=== PATIENT | female | born 1990 | race American Indian/Alaskan Native ===

== ENCOUNTER 2017-01-21 10:43 | Emergency (ER) | payer MEDICAID ==
[2017-01-21 10:43] VITALS: BMI 27.4
[2017-01-21 10:50] VITALS: TEMP 98.3; O2SAT 100
--- NOTE | 2017-01-21 11:36 | ED PDOC ---
Arrival/HPI - General Chief Complaint: Abdominal Pain Time Seen by Provider: 01/21/17 11:23 Historian: Patient - History of Present Illness Narrative History of Present Illness (Text): 01/21/17 11:33 This 26 yo female presents to this ED c/o left abdominal pain x 2 days. Patient stated she had a liposuction performed x 16 days ago. Patient stated she was doing well, till yesterday. Denies fever, sob, cp, constipation, urinary retention, n/v, rectal bleeding, dizziness, melena, hematochezia, or abnormal gait. Patient appears well on her stretcher, in no acute distress, texting with her cellphone. Time/Duration: Other (2 days) Quality: Aching Context: Home Past Medical History - Provider Review Nursing Documentation Reviewed: Yes - Infectious Disease Hx of Infectious Diseases: None - Psychiatric Hx Substance Use: No - Surgical History Hx Section: Yes (x2) Other/Comment: 3 abortions with d&C. liposucton. - Anesthesia Hx Anesthesia: Yes Hx Anesthesia Reactions: No Family/Social History - Physician Review Nursing Documentation Reviewed: Yes Family/Social History: No Known Family HX Smoking Status: Never Smoked Hx Alcohol Use: No Hx Substance Use: No Allergies/Home Meds Allergies/Adverse Reactions: Allergies No Known Allergies Allergy (Verified 01/21/17 10:49) Review of Systems - Review of Systems Constitutional: Normal. absent: Fatigue, Weight Change, Fevers Eyes: Normal ENT: Normal Respiratory: Normal. absent: SOB, Cough, Sputum, Wheezing Cardiovascular: Normal Gastrointestinal: Abdominal Pain. absent: Constipation, Diarrhea, Nausea, Vomiting Genitourinary Female: Normal. absent: Dysuria, Frequency, Hematuria Musculoskeletal: Normal Skin: Normal. absent: Rash Neurological: Normal Endocrine: Normal Hemo/Lymphatic: Normal Psychiatric: Normal Physical Exam Vital Signs Temp Pulse Resp BP Pulse Ox 01/21/17 15:15 70 16 115/62 100 01/21/17 14:15 69 18 111/68 100 01/21/17 12:49 75 18 109/65 100 01/21/17 11:38 78 18 107/61 100 01/21/17 10:49 98.3 F 81 19 105/69 100 Temperature: Afebrile Blood Pressure: Normal Pulse: Regular Respiratory Rate: Normal Appearance: Positive for: Well-Appearing, Non-Toxic, Comfortable Pain Distress: None Mental Status: Positive for: Alert and Oriented X 3 - Systems Exam Head: Present: Atraumatic, Normocephalic Pupils: Present: PERRL Extroacular Muscles: Present: EOMI Conjunctiva: Present: Normal Mouth: Present: Moist Mucous Membranes Neck: Present: Normal Range of Motion Respiratory/Chest: Present: Clear to Auscultation, Good Air Exchange. No: Respiratory Distress, Accessory Muscle Use Cardiovascular: Present: Regular Rate and Rhythm, Normal S1, S2. No: Murmurs Abdomen: Present: Tenderness (mild LUQ and epigastric tenderness.), Normal Bowel Sounds. No: Distention, Peritoneal Signs Back: Present: Normal Inspection. No: CVA Tenderness Upper Extremity: Present: Normal Inspection, Normal ROM, NORMAL PULSES, Neurovascularly Intact, Capillary Refill < 2s. No: Cyanosis, Edema Lower Extremity: Present: Normal Inspection, NORMAL PULSES, Normal ROM, Neurovascularly Intact, Capillary Refill < 2 s. No: Edema, CALF TENDERNESS Neurological: Present: GCS=15, CN II-XII Intact, Speech Normal, Motor Func Grossly Intact, Normal Sensory Function, Normal Cerebellar Funct, Gait Normal, Memory Normal Skin: Present: Warm, Dry, Normal Color. No: Rashes Psychiatric: Present: Alert, Oriented x 3, Normal Insight, Normal Concentration Medical Decision Making ED Course and Treatment: 01/21/17 15:05 Re-evaluation. Patient feels better. Discussed results and plan with patient who expresses understanding. All questions answered and there is agreement with the plan to discharge home with instructions. Patient stable for discharge. Return if symptoms persist or worsen. Re-evaluation Time: 15:06 Reassessment Condition: Re-examined, Improved - Lab Interpretations Microbiology Results: Microbiology Results 01/21/17 12:01 Urine Urine Culture - Final No Growth (<1,000 CFU/ML) Lab Results: 01/21/17 12:05 01/21/17 12:01 Lab Results 01/21/17 12:05: WBC 5.1, RBC 4.09, Hgb 12.5, Hct 37.3, MCV 91.2, MCH 30.6, MCHC 33.5, RDW 12.7, Plt Count 272, MPV 9.4, Gran % 59.5, Lymph % (Auto) 32.8, Sampson % (Auto) 5.3, Eos % (Auto) 2.0, Baso % (Auto) 0.4, Gran # 3.03, Lymph # 1.7, Sampson # 0.3, Eos # 0.1, Baso # 0.02 01/21/17 12:01: Sodium 139, Potassium 3.5 L, Chloride 102, Carbon Dioxide 30, Anion Gap 11, BUN 17, Creatinine 0.7, Est GFR ( Amer) > 60, Est GFR (Non- Af Amer) > 60, Random Glucose 99, Calcium 9.3, Total Bilirubin 0.6, AST 21, ALT 23, Alkaline Phosphatase 43, Total Protein 7.5, Albumin 4.2, Globulin 3.4, Albumin/Globulin Ratio 1.2, Lipase 45 01/21/17 12:01: Urine Color Light red, Urine Appearance Sl cloudy, Urine pH 6.0 , Ur Specific [place] 1.015, Urine Protein Trace H, Urine Glucose (UA) Negative , Urine Ketones Negative, Urine Blood Large H, Urine Nitrate Negative, Urine Bilirubin Negative, Urine Urobilinogen 0.2, Ur Leukocyte Esterase Negative, Urine RBC Tntc, Urine WBC 0 - 2, Ur Epithelial Cells 0 - 2, Urine Bacteria Rare , Urine HCG, Qual Negative 01/21/17 12:01: PT 10.8, INR 1.00, APTT 30.1 01/21/17 12:00: Total Creatine Kinase 112 - RAD Interpretation Narrative RAD Interpretations (Text): 01/21/17 14:13 Accession No. : [id number] Patient Name / ID : FRANCOIS CASTELLANOS / [id number] Exam Date : 01/21/2017 13:02:53 ( Approved ) Study Comment : Sex / Age : F / 26Y Creator : Frederick Jin MD Dictator : Frederick Jin MD Light Industrial Supervisor : Legal Aide : Frederick Jin MD Approver2 : Report Date : 01/21/2017 14:07:26 My Comment : PROCEDURE: CT Abdomen and Pelvis with contrast HISTORY: LUQ pain, epigastric pain COMPARISON: None. TECHNIQUE: Contrast dose: 100 mL Omnipaque 350 Radiation dose: Total exam DLP = 554.89 mGy-cm. This CT exam was performed using one or more of the following dose reduction techniques: Automated exposure control, adjustment of the mA and/or kV according to patient size, and/or use of iterative reconstruction technique. FINDINGS: LOWER THORAX: Unremarkable. LIVER: Mild hepatomegaly. The liver measures 18.3 cm craniocaudal dimension. No mass. No biliary dilatation. Smooth contour. GALLBLADDER AND BILE DUCTS: Unremarkable. PANCREAS: Unremarkable. No gross lesion or ductal dilatation. SPLEEN: Unremarkable. ADRENALS: Unremarkable. No mass. KIDNEYS AND URETERS: Unremarkable. No hydronephrosis. No solid mass. VASCULATURE: Unremarkable. No aortic aneurysm. BOWEL: Evaluation of the bowel is limited by the absence of oral contrast administration. Nevertheless, there is suspected circumferential mural thickening of the distal half of the transverse colon as well as the proximal aspect of the descending colon, consistent with nonspecific colitis. There are no other abnormal bowel loops identified. There is no bowel obstruction. APPENDIX: Normal appendix. PERITONEUM: Trace fluid in cul-de-sac. LYMPH NODES: Unremarkable. No enlarged lymph nodes. BLADDER: Unremarkable. REPRODUCTIVE: Normal uterus. Unremarkable ovaries. BONES: No fracture. Minimal thoracolumbar dextroscoliosis. OTHER FINDINGS: In the anterior abdominal wall, there are 2 fluid collections identified. Supraumbilical E, there is a midline elongated collection within the subcutaneous fat, measuring 10.1 cm transversely. It measures 11 mm anterior to posterior. It measures up to 4.8 cm craniocaudal but tapers away from the midline. 2nd infraumbilical anterior fluid collection is identified within the subcutaneous fat, it is not known if more inferior collection is within a scar from prior . There is no inflammatory change in the surrounding subcutaneous fat to suggest abscess. Nevertheless, clinical correlation is advised to exclude the possibility of an infected collection. IMPRESSION: Two fluid collections within the anterior midline subcutaneous fat, 1 supraumbilical and 1 smaller infraumbilical collection. The infraumbilical collection may be located within a former scar. Mild hepatomegaly. Possible nonspecific colitis of the distal transverse and proximal ascending colon although evaluation is limited by the absence of oral contrast. No additional abnormality. Radiology Orders: 01/21/17 11:37 CHEST PORTABLE [RAD] Stat 01/21/17 11:39 ABD & PELVIS IV CONTRAST ONLY [CT] Stat - Medication Orders Current Medication Orders: Discontinued Medications Famotidine (Pepcid) 20 mg IVP STAT STA Stop: 01/21/17 11:38 Last Admin: 01/21/17 12:09 Dose: 20 mg Iohexol (Omnipaque 350 100 Ml) Confirm Administered Dose 350 mg .ROUTE .STK-MED ONE Stop: 01/21/17 13:06 Ketorolac Tromethamine (Toradol) 15 mg IVP STAT STA Stop: 01/21/17 14:51 Last Admin: 01/21/17 15:03 Dose: 15 mg Disposition/Present on Arrival - Present on Arrival Any Indicators Present on Arrival: No History of DVT/PE: No History of Uncontrolled Diabetes: No Urinary Catheter: No History of Decub. Ulcer: No History Surgical Site Infection Following: None - Disposition Have Diagnosis and Disposition been Completed?: Yes Diagnosis: Abdominal pain, Colitis Disposition: HOME/ ROUTINE Disposition Time: 15:06 Patient Plan: Discharge Condition: GOOD Discharge Instructions (ExitCare): Abdominal Pain (ED), Colitis (ED) Additional Instructions: Call private general surgeon doctor for follow up visit in 1-2 days. Return to emergency if symptoms worsen. Prescriptions: Ciprofloxacin HCl [Cipro] 500 mg PO BID #14 tab Famotidine [Pepcid] 40 mg PO DAILY #10 tablet Metronidazole [Flagyl] 500 mg PO TID #21 tablet Naproxen [Naprosyn Tab] 375 mg PO BID PRN #14 tab PRN Reason: Pain, Severe (8-10) Referrals: Alysha Carlson MD [Primary Care Provider] - Follow up with primary Forms: WORK NOTE
[2017-01-21 12:15] LABS: ADD MANUAL DIFF? NO
[2017-01-21 12:20] LABS: BASO # 0.02 K/mm3 (0.0-2.0); BASO % 0.4 % (0.0-3.0); EOS # 0.1 (0.0-0.7); GRAN # 3.03 (1.4-6.5); GRAN % 59.5 % (50.0-68.0); HEMATOCRIT 37.3 % (36.0-48.0); LYMPH # 1.7 (1.2-3.4); LYMPH % 32.8 % (22.0-35.0); MEAN CELL VOLUME 91.2 fL (80.0-105.0); MEAN CORPUSCULAR HEMOGLOBIN 30.6 pg (25.0-35.0); MEAN CORPUSCULAR HGB CONC 33.5 g/dl (31.0-37.0); MEAN PLATELET VOLUME 9.4 fl (7.0-11.0); MONO # 0.3 (0.1-0.6); MONO % 5.3 % (1.0-6.0); PLATELET COUNT 272 10^3/uL (120.0-450.0); RED CELL DISTRIBUTION WIDTH 12.7 % (11.5-14.5); WHITE BLOOD COUNT 5.1 10^3/ul (4.5-11.0)
[2017-01-21 12:21] LABS: URINE BILIRUBIN NEGATIVE (NEGATIVE); URINE BLOOD LARGE (NEGATIVE); URINE GLUCOSE (UA) NEGATIVE (NEGATIVE); URINE KETONE NEGATIVE (NEGATIVE); URINE LEUKOCYTE ESTERASE NEGATIVE Leu/uL (NEGATIVE); URINE PROTEIN TRACE mg/dL (<30 mg/dL); URINE UROBILINOGEN 0.2 E.U./dL (<1 E.U./dL)
[2017-01-21 12:25] LABS: URINE APPEARANCE SL CLOUDY (CLEAR); URINE COLOR LIGHT RED (YELLOW)
[2017-01-21 12:30] LABS: ALB/GLOB RATIO 1.2 (1.1-1.8); ALKALINE PHOSPHATASE 43 U/L (38-133); ALT/SGPT 23 U/L (7-56); AST/SGOT 21 U/L (15-39); BILIRUBIN,TOTAL 0.6 mg/dL (0.2-1.3); BLOOD UREA NITROGEN 17 mg/dL (7-21); CALCIUM 9.3 mg/dL (8.4-10.5); CARBON DIOXIDE 30 mmol/L (21-33); CHLORIDE 102 mmol/L (98-107); GFR AFRICAN-AMERICAN > 60; GLUCOSE,RANDOM 99 mg/dL (70-110); LIPASE 45 U/L (23-300); PARTIAL THROMBOPLASTIN TIME 30.1 Seconds (23.7-30.8); POTASSIUM 3.5 mmol/L (3.6-5.0); SODIUM 139 mmol/L (132-148); TOTAL PROTEIN 7.5 g/dL (5.8-8.3)
[2017-01-21 12:46] LABS: URINE BACTERIA RARE (NEG); URINE EPITHELIAL CELLS 0 - 2 /hpf (0-5); URINE RBC TNTC /hpf (0-2); URINE WBC 0 - 2 /hpf (0-6)
[2017-01-21] MEDS ORDERED: Iohexol 350 MG/100 ML VIAL ONE (13:05)
[2017-01-21] MEDS ORDERED: Morphine 2 mg/ml ISec IVP STA (14:09)
--- NOTE | 2017-01-21 14:09 | CT ---
PROCEDURE: CT Abdomen and Pelvis with contrast HISTORY: LUQ pain, epigastric pain COMPARISON: None. TECHNIQUE: Contrast dose: 100 mL Omnipaque 350 Radiation dose: Total exam DLP = 554.89 mGy-cm. This CT exam was performed using one or more of the following dose reduction techniques: Automated exposure control, adjustment of the mA and/or kV according to patient size, and/or use of iterative reconstruction technique. FINDINGS: LOWER THORAX: Unremarkable. LIVER: Mild hepatomegaly. The liver measures 18.3 cm craniocaudal dimension. No mass. No biliary dilatation. Smooth contour. GALLBLADDER AND BILE DUCTS: Unremarkable. PANCREAS: Unremarkable. No gross lesion or ductal dilatation. SPLEEN: Unremarkable. ADRENALS: Unremarkable. No mass. KIDNEYS AND URETERS: Unremarkable. No hydronephrosis. No solid mass. VASCULATURE: Unremarkable. No aortic aneurysm. BOWEL: Evaluation of the bowel is limited by the absence of oral contrast administration. Nevertheless, there is suspected circumferential mural thickening of the distal half of the transverse colon as well as the proximal aspect of the descending colon, consistent with nonspecific colitis. There are no other abnormal bowel loops identified. There is no bowel obstruction. APPENDIX: Normal appendix. PERITONEUM: Trace fluid in cul-de-sac. LYMPH NODES: Unremarkable. No enlarged lymph nodes. BLADDER: Unremarkable. REPRODUCTIVE: Normal uterus. Unremarkable ovaries. BONES: No fracture. Minimal thoracolumbar dextroscoliosis. OTHER FINDINGS: In the anterior abdominal wall, there are 2 fluid collections identified. Supraumbilical E, there is a midline elongated collection within the subcutaneous fat, measuring 10.1 cm transversely. It measures 11 mm anterior to posterior. It measures up to 4.8 cm craniocaudal but tapers away from the midline. 2nd infraumbilical anterior fluid collection is identified within the subcutaneous fat, it is not known if more inferior collection is within a scar from prior . There is no inflammatory change in the surrounding subcutaneous fat to suggest abscess. Nevertheless, clinical correlation is advised to exclude the possibility of an infected collection. IMPRESSION: Two fluid collections within the anterior midline subcutaneous fat, 1 supraumbilical and 1 smaller infraumbilical collection. The infraumbilical collection may be located within a former scar. Mild hepatomegaly. Possible nonspecific colitis of the distal transverse and proximal ascending colon although evaluation is limited by the absence of oral contrast. No additional abnormality.
--- NOTE | 2017-01-21 14:11 | RAD ---
HISTORY: LUQ abd.pain COMPARISON: No prior. FINDINGS: LUNGS: No active pulmonary disease. PLEURA: No significant pleural effusion identified, no pneumothorax apparent. CARDIOVASCULAR: Normal. OSSEOUS STRUCTURES: No significant abnormalities. VISUALIZED UPPER ABDOMEN: Normal. OTHER FINDINGS: None. IMPRESSION: No active disease.
[2017-01-21 15:20] VITALS: BP 115/62; PULSE 70; RESP 16
== END 2017-01-21 15:20 | disposition home or self-care (01) ==
LOC: ED 10:43
DX: R10.9 Unspecified abdominal pain (principal); Z98.890 Other specified postprocedural states
CPT/HCPCS: 71010; 74177; 80053; 81001; 82550; 83690; 84703; 85025; 85610; 85730; 87086; 96374; 96375; 99284; J1885; Q9967

== ENCOUNTER 2017-08-19 22:12 | Emergency (ER) | payer BC, MEDICAID ==
[2017-08-19 22:37] VITALS: BMI 30.3
[2017-08-19 22:51] VITALS: BP 101/67; PULSE 94; RESP 18; TEMP 98.4; O2SAT 100
--- NOTE | 2017-08-20 | ED PDOC ---
Arrival/HPI - General Historian: Patient - History of Present Illness Time/Duration: > week (2 weeks) Symptom Onset: Gradual Symptom Course: Unchanged, Worsening Quality: Pressure, Cramping Severity Level: Mild, Moderate Activities at Onset: Rest, Light, Sleeping Context: Sitting, Standing, Walking, Exertion <Diane Flores - Last Filed: 08/20/17 02:27> <Nathaniel Guevara - Last Filed: 08/20/17 05:52> - General Chief Complaint: Female Genitourinary Time Seen by Provider: 08/19/17 22:21 - History of Present Illness Narrative History of Present Illness (Text): 08/19/17 23:46 Pt is a 26 yo F c/o discomfort in pelvis and low back while trying to urinate x 2 weeks. States she has had fever ad chills and increase in night time urgency in the last 2-3 days. Pt states that she has not taken any OTC medication. Denies vaginal irritation, odorous discharge, but reports cloudy and odorous urine x 1 wk. States that ~8 yrs ago, she had abnormal PAP smear and had colposcopy; regular PAP smears have been negative to date. (Diane Flores) Past Medical History - Provider Review Nursing Documentation Reviewed: Yes - Travel History Have you recently traveled outside [place] w/in the past 3 mons?: No - Past History Past History: No Previous - Infectious Disease Hx of Infectious Diseases: None - Tetanus Immunization Tetanus Immunization: Unknown - Reproductive Menopause: No Currently : No - Cardiac Hx Cardiac Disorders: No - Pulmonary Hx Respiratory Disorders: No - Neurological Hx Neurological Disorder: No - HEENT Hx HEENT Disorder: No - Renal Hx Renal Disorder: No - Endocrine/Metabolic Hx Endocrine Disorders: No - Hematological/Oncological Hx Blood Disorders: No - Integumentary Hx Dermatological Disorder: No - Musculoskeletal/Rheumatological Hx Musculoskeletal Disorders: No - Gastrointestinal Hx Gastrointestinal Disorders: No - Genitourinary/Gynecological Hx Genitourinary Disorders: No - Psychiatric Hx Psychophysiologic Disorder: No Hx Substance Use: No - Past Surgical History Past Surgical History: No Previous - Surgical History Hx Section: Yes (x2) Other/Comment: 3 abortions with d&C. liposucton. - Anesthesia Hx Anesthesia: Yes Hx Anesthesia Reactions: No <Diane Flores - Last Filed: 08/20/17 02:27> Family/Social History - Physician Review Nursing Documentation Reviewed: Yes Family/Social History: No Known Family HX Smoking Status: Former Smoker Hx Alcohol Use: No Hx Substance Use: No <Diane Flores - Last Filed: 08/20/17 02:27> Allergies/Home Meds <Diane Flores - Last Filed: 08/20/17 02:27> <IsmaelNathaniel - Last Filed: 08/20/17 05:52> Allergies/Adverse Reactions: Allergies No Known Allergies Allergy (Verified 01/21/17 10:49) Review of Systems - Physician Review All systems were reviewed & negative as marked: Yes - Review of Systems Constitutional: Normal. absent: Fatigue, Weight Change, Fevers, Night Sweats, Other Respiratory: Normal. absent: SOB, Cough, Sputum, Wheezing, Other Cardiovascular: Normal. absent: Chest Pain, Palpitations, Edema, Calf Pain, MCNALLY , Orthopnea, SY, Syncope, Other Gastrointestinal: Normal. absent: Abdominal Pain, Stool Changes, Constipation, Diarrhea, Nausea, Vomiting, Appetite Changes, Hematochezia, Hematemesis, Anorexia, Food Intolerance, Other Genitourinary Female: Dysuria, Frequency, Urine Output Changes. absent: Normal , Hematuria, Vaginal Bleeding, Vaginal Discharge, Other Musculoskeletal: Normal, Back Pain. absent: Arthralgias, Neck Pain, Joint Swelling, Myalgias, Other Skin: Normal. absent: Rash, Pruritis, Skin Lesions, Laceration, Abscess, Ulcer , Cellulitis, Other Neurological: Normal. absent: Headache, Dizziness, Focal Weakness, Gait Changes , Speech Changes, SC, Facial Droop, DE, Disequilibrium, SE, Seizure, Other <Diane Flores - Last Filed: 08/20/17 02:27> Physical Exam Vital Signs Reviewed: Yes Temperature: Afebrile Blood Pressure: Normal Pulse: Regular Respiratory Rate: Normal Appearance: Positive for: Well-Appearing, Non-Toxic, Comfortable Pain Distress: Mild Mental Status: Positive for: Alert and Oriented X 3 - Systems Exam Head: Present: Atraumatic, Normocephalic Mouth: Present: Moist Mucous Membranes Respiratory/Chest: Present: Clear to Auscultation, Good Air Exchange. No: Respiratory Distress, Accessory Muscle Use, Wheezes, Decreased Breath Sounds, Rales, Retracting, Rhonchi, Tachypneic, Tender to Palpation, Other Cardiovascular: Present: Regular Rate and Rhythm, Normal S1, S2. No: Murmurs, Irregular Rhythm, Peripheal Pulses Present, Tachycardic, Bradycardic, Rub, Gallop, Muffled, Other Abdomen: Present: Tenderness, Normal Bowel Sounds. No: Distention, Peritoneal Signs, Rebound, Guarding, McBurney's Point Tender, Rovsing's Sign Present, Hernias, Feeding Tubes, Ostomy Tubes, Mass/Organomegaly, Scars, Other Back: Present: Normal Inspection. No: CVA Tenderness, Midline Tenderness, Paraspinal Tenderness, Pain with Leg Raise, Decubitus Ulcer, Other Lower Extremity: Present: Normal Inspection. No: Edema, CALF TENDERNESS, NORMAL PULSES, Cyanosis, Normal ROM, Avni's Sign, Tenderness, Swelling, Erythema, Deformity, Temperature Abnormalties, Neurovascularly Intact, Capillary Refill < 2 s, Other Neurological: Present: GCS=15, Speech Normal Skin: Present: Warm, Dry, Normal Color Psychiatric: Present: Alert, Oriented x 3 <Diane Flores - Last Filed: 08/20/17 02:27> Vital Signs Temp Pulse Resp BP Pulse Ox 08/19/17 22:49 98.4 F 94 H 18 101/67 100 Medical Decision Making <Diane Flores - Last Filed: 08/20/17 02:27> <Nathaniel Guevara - Last Filed: 08/20/17 05:52> ED Course and Treatment: 08/20/17 00:05 Pt is a 26 yo F c/o discomfort in pelvis and low back while trying to urinate x 2 weeks. On Pe, suprapubic pressure and discomfort, lumbar pain bilateral witn no referral; negative CVA tenderness. Pt likely has UTI Working Dx: 1. UTI/cystitis-->UA pending 2 --> hcg pending Plan: 1. UA and warranted cx 2. (Diane Flores) - Lab Interpretations Lab Results: Lab Results 08/20/17 00:00: Urine Color Yellow, Urine Appearance Cloudy, Urine pH 7.0, Ur Specific [place] 1.020, Urine Protein 30 H, Urine Glucose (UA) Negative, Urine Ketones Negative, Urine Blood Moderate H, Urine Nitrate Negative, Urine Bilirubin Negative, Urine Urobilinogen 1.0 H, Ur Leukocyte Esterase Small H, Urine RBC 1 - 3, Urine WBC 20 - 25, Ur Epithelial Cells 0 - 2, Urine Bacteria Small, Urine HCG, Qual Negative - PA / SSIS SSRS DEVELOPER / Resident Statement MD/DO has reviewed & agrees with the documentation as recorded. <Nathaniel Geuvara - Last Filed: 08/20/17 05:52> Disposition/Present on Arrival - Present on Arrival History of DVT/PE: No History of Uncontrolled Diabetes: No Urinary Catheter: No History of Decub. Ulcer: No History Surgical Site Infection Following: None - Disposition Have Diagnosis and Disposition been Completed?: Yes Disposition Time: 01:52 Patient Plan: Discharge <Diane Flores - Last Filed: 08/20/17 02:27> - Present on Arrival Any Indicators Present on Arrival: No - Disposition Have Diagnosis and Disposition been Completed?: Yes <Nathaniel Guevara - Last Filed: 08/20/17 05:52> - Disposition Diagnosis: UTI (urinary tract infection) Disposition: HOME/ ROUTINE Condition: STABLE Discharge Instructions (ExitCare): Cephalexin (By mouth), Urinary Tract Infection in Women (ED) Additional Instructions: You have been diagnosed with a urinary trat infection. Please not e that we are giving you an antibiotic that needs to be be taken for the entire 7 days. If you experience fevers, chills, sweats, increased burning or blood on urination, please return to the emergency room for further evaluation. We recommend following up with your doctor in one week. Thanks you for your patience and wishing you good health. Prescriptions: Cephalexin [Keflex] 500 mg PO BID 7 Days #14 capsule Referrals: Alysha Carlson MD [Primary Care Provider] - Follow up with primary Forms: [employer] ([place])
[2017-08-20 01:07] LABS: URINE BILIRUBIN NEGATIVE (NEGATIVE); URINE BLOOD MODERATE (NEGATIVE); URINE GLUCOSE (UA) NEGATIVE (NEGATIVE); URINE LEUKOCYTE ESTERASE SMALL Leu/uL (NEGATIVE); URINE NITRATE NEGATIVE (NEGATIVE); URINE PROTEIN 30 mg/dL (<30 mg/dL)
[2017-08-20 01:12] LABS: URINE COLOR YELLOW (YELLOW)
[2017-08-20 01:13] LABS: URINE APPEARANCE CLOUDY (CLEAR)
[2017-08-20 01:23] LABS: URINE BACTERIA SMALL (NEG); URINE EPITHELIAL CELLS 0 - 2 /hpf (0-5); URINE WBC 20 - 25 /hpf (0-6)
[2017-08-20 01:24] LABS: HCG,QUALITATIVE URINE NEGATIVE (NEGATIVE)
== END 2017-08-20 02:10 | disposition home or self-care (01) ==
LOC: ED 22:12
DX: N39.0 Urinary tract infection, site not specified (principal)